=== PATIENT | female | born 2000 | race Caucasian/White ===

== ENCOUNTER → 2019-10-04 | Outpatient (REF) | payer BC ==
[2019-10-04 13:32] LABS: CHLAMYDIA DNA AMPLIFICATION NEGATIVE (NEGATIVE); GC DNA AMPLIFICATION NEGATIVE (NEGATIVE)
== END ==
LOC: M WUC 11:37
PROVIDERS: ATTEND Physician Assistant
DX: R30.0 Dysuria (principal)